=== PATIENT | male | born 1970 | race Caucasian/White ===

== ENCOUNTER 2020-06-24 09:18 | Observation (INO) | payer OTHER, SELFPAY ==
[2020-06-24] VITALS (17 sets, daily range): BP systolic 116–162; BP diastolic 69–97; PULSE 56–87; RESP 14–23; TEMP 36.4–37.4; O2SAT 93–100; BMI 29.6
--- NOTE | 2020-06-24 09:33 | US_ITS ---
WS: [id number] ULTRASOUND ABDOMEN LIMITED CLINICAL INFORMATION: last ate last night COMPARISON: May 26, 2020 FINDINGS: Liver Size: Normal. Craniocaudal length: 15.7 cm. Echogenicity: Normal. Surface nodularity: None. Mass (size and location): None. Bile ducts Intrahepatic ducts: Normal. Common bile duct diameter: 0.3 cm. Gallbladder Cholelithiasis Gallstones: Present Gallbladder sludge: None. Gallbladder wall thickenin-8 mm Pericholecystic fluid: Present Sonographic Kerr sign: Absent. Pancreas Normal as visualized. Right kidney: Normal. Hydronephrosis: None. Size: 11.7 cm x 4.4 cm x 5.3 cm. Abdominal aorta and IVC Visualized portions are normal. Ascites: None. Notified JEZ Lugo at 06/24/2020 10:47 AM. US/US gall bladder [id number] IMPRESSION: 1. Normal liver. 2. Cholelithiasis with gallbladder wall thickening and pericholecystic edema. Large shadowing gallstones. Findings suspicious for ACUTE CHOLECYSTITIS. Gallbl adder wall thickening is progressed since May 26, 2020 3. No hydronephrosis in right kidney.
--- NOTE | 2020-06-24 09:34 | ED_ITS ---
HPI - Abdominal Pain General: Chief Complaint: Abdominal Pain Stated Complaint: UPPER ABD PAIN Time Seen by Provider: 06/24/20 09:24 History of Present Illness: HPI narrative: Patient complain about right-sided upper abdominal pain this is his fifth gallbladder attack as he says. This was last about 33 hours said he ate some fried fish talk was on the road and fix and fried food at home and this set this thing off. He has been vomiting since last night. Not able to keep fluids down well. Had recent gallbladder ultrasound which did show cholelithiasis tried to control with diet did not want surgery but now think he might like to have surgery. MD elicited complaint: abdominal pain Onset (ago): hour(s) Pain Consistency: constant Location: RUQ Severity: moderate Pain scale (0-10): 5 Quality: aching Migration to: no migration Exacerbating factors: eating Relieving factors: rest Associated Symptoms: Reports nausea and vomiting; Denies chills and fever(s) Review of Systems Const: Denies: fever(s), chills or body aches Eyes: Denies: change in vision or blurry vision ENMT: Denies: throat pain or nasal congestion Card: Denies: chest pain or dyspnea on exertion Resp: Denies: dyspnea, productive cough or non-productive cough GI: Reports: abdominal pain, nausea and vomiting : Denies: difficulty urinating Musc: Denies: extremity pain Skin/Breast: Denies: rash Neuro: Denies: headache(s) Psych: Denies: anxiety or depression Jc/Lymph: Denies: easy bruising Physical Exam Const: COMMON NORMALS: no acute distress, average body habitus and patient oriented x3 HENMT: COMMON NORMALS: normocephalic HEAD & SCALP: normal to inspection and normocephalic FACE & SINUS: normal facial exam Eye: COMMON NORMALS: conjunctivae normal GENERAL EYE: appearance normal, both eyes and all related structures CONJUNCTIVA: Yes conjunctivae normal Neck/C-Spine: COMMON NORMALS: no JVD Chest: COMMONS NORMALS: normal inspection of the chest Resp: COMMON NORMALS: normal respiratory effort and clear to auscultation bilaterally AUSCULTATION: clear to auscultation bilaterally Cardio: COMMON NORMALS: no JVD, regular rate and regular rhythm RATE: regular rate RHYTHM: regular rhythm GI: COMMON NORMALS: Normal to inspection, nondistended, normoactive bowel sounds present PALPATION: Yes Tenderness to palpation present (GI) Details: RUQ Extremity: COMMON NORMALS: normal to inspection and full ROM Neuro: COMMON NORMALS: patient oriented x3 Course Vital Signs: Vital signs: Vital Signs Temperature 99.4 F 06/24/20 09:26 Pulse Rate 66 06/24/20 09:26 Respiratory Rate 18 06/24/20 09:26 Blood Pressure 155/97 06/24/20 09:26 Pulse Oximetry 96 06/24/20 09:26 MDM - Abdominal Pain MDM Narrative: Medical decision making narrative: Dr. Dr. Gaspar after getting radiology report of an inflamed gallbladder with edema Dr. Gaspar will see the patient here in the ER. Lab Data: Labs: Lab Results 06/24/20 06/24/20 Range/Units 09:49 09:49 WBC 14.9 H (4.0-10.0) 10^3/ uL RBC 5.10 (4.1-5.3) 10^6/u L Hgb 16.1 (11.7-16.6) g/dL Hct 45.4 (42.0-52.0) % MCV 89.0 (80-94) fL MCH 31.6 (28.0-34.0) pg MCHC 35.5 (30.0-36.0) g/dL RDW 12.8 (12.1-15.1) % Plt Count 168 (130-400) 10^3/c mm MPV 11.4 H (7.4-10.4) fL Neut % (Auto) 82.5 % Lymph % (Auto) 8.8 % [place] % (Auto) 7.7 % Eos % (Auto) 0.5 % Baso % (Auto) 0.2 % Neut # (Auto) 12.30 H (1.8-7.7) 10^3/u L Lymph # (Auto) 1.3 (0.8-4.8) 10^3/u L [place] # (Auto) 1.2 H (0.2-0.9) 10^3/u L Eos # (Auto) 0.1 (0.0-0.8) 10^3/u L Baso # (Auto) 0.0 (0.0-0.1) 10^3/u L Nucleated RBC % (a uto) 0 % Nucleated RBCs # 0.0 /100WBC Sodium 136 (136-145) mmol/L Potassium 3.7 (3.5-5.1) mmol/L Chloride 100 (98-107) mmol/L Carbon Dioxide 23 (22-29) mmol/L Anion Gap 16.7 (5-19) BUN 9 (6-20) mg/dL Creatinine 1.0 (0.7-1.2) mg/dL GFR Calculation 79.8 L (90-130) mL/min Glucose 126 H (65-115) mg/dL Calculated Osmolal ity 280 L (285-295) mOsm/k g Calcium 9.6 (8.5-10.5) mg/dL Total Bilirubin 0.9 (0.15-1.2) mg/dL AST 19 (0-40) U/L ALT 14 (0-41) U/L Alkaline Phosphata se 71 (40-130) IU/L Total Protein 7.7 (6.6-8.7) g/dL Albumin 4.6 (3.5-5.2) g/dL Globulin 3.1 (1.3-4.6) g/dL Lipase 30 (13-60) U/L Discharge Plan Discharge Patient Disposition: Home Clinical Impression: Cholelithiases Qualifiers: Cholelithiasis location: gallbladder Cholecystitis presence: without cholecystitis Biliary obstruction: without biliary obstruction Qualified Code(s): K80.20 - Calculus of gallbladder without cholecystitis without obstruction Condition: Stable Prescriptions: New ciprofloxacin HCl 500 mg tablet 500 mg PO BID Qty: 14 RF: 0 hydrocodone-acetaminophen 5-325 mg tablet 1 tab PO Q6H PRN (Reason: pain) Qty: 10 RF: 0 No Action Tylenol Extra Strength 500 mg Tablet 1,000 mg PO PRN RF: 0 Discharge Orders: Discharge Order (Routine); Ordered 06/24/20 Ordered By: Joo Hernández Referrals: Lindsey Carpenter MD [Primary Care Provider] - Discharge Diet: As Directed Discharge Activity: Resume usual activity Patient Instructions: Biliary Colic (ED) Activity Restrictions/Additional Instructions: Follow-up with medical provider as directed. Take medications as prescribed. Return to the ER or your medical provider if condition worsens. Please read and understand discharge instructions. If any questions ask please. Follow-up Dr. Castaneda see about getting gallbladder function test done to check ejection fraction. Very bland diet stay away from greasy fried type foods that irritate the gallbladder Coding Level of Care Code ED Cloak Room Attendant for Chg Fwd Exam Comprehensive
[2020-06-24] MEDS: ketorolac 30 mg/mL INJ IVP (09:48)
[2020-06-24] MEDS: ondansetron 2 mg/ML SDV 2 mL 4 MG IVP (09:48)
[2020-06-24] MEDS: sodium chloride 0.9% 1,000 ML 999 ML IV (09:49)
[2020-06-24 09:57] LABS: Basophils % 0.2 %; Eosinophils # 0.1 10^3/uL (0.0-0.8); Eosinophils % 0.5 %; Hematocrit 45.4 % (42.0-52.0); Hemoglobin 16.1 g/dL (11.7-16.6); Lymphocytes # 1.3 10^3/uL (0.8-4.8); Lymphocytes % 8.8 %; Mean Corpuscular HGB Conc 35.5 g/dL (30.0-36.0); Mean Corpuscular Hemoglobin 31.6 pg (28.0-34.0); Mean Platelet Volume 11.4 fL (7.4-10.4); Monocytes # 1.2 10^3/uL (0.2-0.9); Monocytes % 7.7 %; Neutrophils % 82.5 %; Nucleated Red Blood Cells % 0 %; Platelet Count 168 10^3/cmm (130-400); Red Cell Distribution Width 12.8 % (12.1-15.1); White Blood Count 14.9 10^3/uL (4.0-10.0)
[2020-06-24 10:24] LABS: Alanine Aminotransferase 14 U/L (0-41); Albumin Level 4.6 g/dL (3.5-5.2); Alkaline Phosphatase 71 IU/L (40-130); Anion Gap 16.7 (5-19); Aspartate Amino Transferase 19 U/L (0-40); Blood Urea Nitrogen 9 mg/dL (6-20); Calcium 9.6 mg/dL (8.5-10.5); Carbon Dioxide 23 mmol/L (22-29); Chloride 100 mmol/L (98-107); Globulin 3.1 g/dL (1.3-4.6); Glomerular Filtration Rate 79.8 mL/min (90-130); Glucose 126 mg/dL (65-115); Lipase 30 U/L (13-60); Osmolality Calculated 280 mOsm/kg (285-295); Potassium 3.7 mmol/L (3.5-5.1); Sodium 136 mmol/L (136-145); Total Bilirubin 0.9 mg/dL (0.15-1.2); Total Protein 7.7 g/dL (6.6-8.7)
--- NOTE | 2020-06-24 11:04 | PM.HP ---
Providers/Chief Complaint Admitting Physician: General Surgery Barrett Gaspar MD Primary Care Provider: Lindsey Carpenter MD Chief Complaint: UPPER ABD PAIN History of Present Illness Scott Sweeney is a 49 year old male who began having symptoms suggestive of biliary colic 3 to 4 months ago. He had an ultrasound a month ago which confirmed cholelithiasis but no evidence of acute cholecystitis at that time. Up to that point in time he had had 4 significant attacks where he describes right upper quadrant pain after eating greasy food which was associated with nausea and vomiting. He never has had any evidence of hematemesis. He would feel somewhat gassy and belchy during the episodes. The episodes would usually last only for hours at a time and then go away. He decided to initially try to treat this with diet modification. The patient ended up having a another episode that started about 36 hours ago and has never gotten better. He describes pain in the right upper quadrant which went around to the right side of his back on this occasion. He had multiple episodes of vomiting and then some retching. He denies any fevers or chills. He has not had a bowel movement for 2 days but says they have been normal up until that time. He does mention some intermittent bentley-colored stool over the past several months but no evidence of jaundice. The patient came to the emergency room today and a repeat ultrasound now showed evidence of acute calculus cholecystitis as evidenced by a thickened gallbladder wall and pericholecystic edema. Liver function studies were all within normal limits. The patient says he actually feels considerably better now but he knows the pain medication is making a big difference. Review of Systems General: Reports: 10 or more systems reviewed and unremarkable except in HPI and below Const: Denies: fever(s) Card: Reports: chest pain (Perhaps some lower right-sided chest pain in association with his right upper quadrant pain during episodes of biliary colic) GI: Reports: abdominal pain, nausea and vomiting; Denies: change in stool character (Other than some windows and doors installer colored stool at times, but not classically acholic stool) or hematochezia Medications/Allergies Home Medications Medication Instructions Recorded Confirmed Last Taken Type No Known Home Medications 06/24/20 06/24/20 Unknown History Allergies Allergy/AdvReac Type Severity Reaction Status Date / Time [place] nut Allergy ALGY-Rash Verified 06/24/20 09:29 tuna oil Allergy ALGY-Rash Verified 06/24/20 09:29 PFSH Acute PFSH: Medical History (Updated 06/24/20 @ 11:38 by Barrett Gaspar MD) Cholelithiasis Dyslipidemia Surgical History (Updated 06/24/20 @ 11:36 by Barrett Gaspar MD) History of hernia surgery Bilateral inguinal hernia repair History of placement of ear tubes X 3 sets History of vasectomy Social History (Updated 06/24/20 @ 11:37 by Barrett Gaspar MD) Smoking and tobacco status: former smoker Quit status (tobacco): has quit using tobacco Year quit tobacco: 2016 Former quit date comment: [id number] history prior to quitting Alcohol intake: current Alcohol type: beer and wine Alcohol use comment: Intermittently Vitals/I&O/Wt Last Vital Signs Temp 99.4 F 06/24/20 09:26 Pulse 66 06/24/20 09:26 Resp 18 06/24/20 09:26 BP 155/97 06/24/20 09:26 Pulse Ox 96 06/24/20 09:26 Weight last 48 hrs Weight 195 lb Physical Exam Narrative: EXAM NARRATIVE: Patient was encountered in his emergency room cubicle. He does not appear to be in any acute distress. The pupils are equal. No carotid bruits are heard. The lungs are clear anteriorly. The heart is regular. The abdomen is mildly obese but is soft. The patient has some mild to moderate tenderness in the right upper quadrant but Kerr sign is negative. No obvious masses are palpated. The extremities reveal no edema. Neurologically the patient appears to be grossly intact. Data : 06/24/20 09:49 06/24/20 09:49 Other Labs: Laboratory Tests 06/24/20 09:49 Total Bilirubin 0.9 AST 19 ALT 14 Lipase 30 US: Radiologist's impression: Gallbladder ultrasound 06/24/2020 iMPRESSION: 1. Normal liver. 2. Cholelithiasis with gallbladder wall thickening and pericholecystic edema. Large shadowing gallstones. Findings suspicious for ACUTE CHOLECYSTITIS. Gallbladder wall thickening is progressed since May 26, 2020 3. No hydronephrosis in right kidney. A&P Assessment and plan (1) Acute cholecystitis due to biliary calculus: I discussed biliary colic and acute cholecystitis with the patient in some detail. I made him aware that the recommendation with acute cholecystitis is to proceed with surgery. We discussed laparoscopy and open surgery. We also discussed risks of bleeding, infection, internal organ injury, etc. The patient seems to understand. He would like to proceed with a cholecystectomy today. The patient last had some sips of water at 4 AM this morning. I will make arrangements to proceed to the operating room today for a cholecystectomy. Status: Acute Attestations Medical Necessity Statement*: Based on my medical assessment, presenting symptoms and consideration of the scope of surgical therapy, I expect this patient will require treatment in the hospital for a period of time spanning less than 2 midnights, and is therefore being placed in observation status. Coding Level of Care Code Acute Sales Engineer for Chava Nguyen Diagnoses Acute cholecystitis due to biliary calculus K80.00
--- NOTE | 2020-06-24 11:07 | PC.NURSE ---
Dr. Gaspar at bedside speaking with the patient. Patient explained that last food intake was at 10pm, last fluid intake 0400 this morning.
[2020-06-24] MEDS: lactated ringers 1,000 ML 150 ML IV (11:44)
--- NOTE | 2020-06-24 12:08 | ANES.PREANE2 ---
Pre-Anesthetic Assessment Pre-Anesthetic Assessment: Height/Weight: Height 1.73 m Weight 88.451 kg Temp Pulse Resp BP Pulse Ox 97.7 F 64 16 139/83 96 06/24/20 12:06 06/24/20 12:06 06/24/20 12:06 06/24/20 12:06 06/24/20 12:06 Proposed Procedure: Operation Date: 06/24/20 12:00 Proposed Procedures p Laparoscopic Cholecystectomy(Not Applicable) - Barrett Gaspar MD Last intake: Intake Last Liquid Date 06/24/20 Last Liquid Time 04:00 Last Solid Date 06/23/20 Last Solid Time 22:30 Social: Social History: Tobacco (quit 2016) and No alcohol Exam: Pre-Anes Outpt Exam: alert, oriented x 3, clear to auscultation bilaterally and regular rate & rhythm Airway: Submandibular: WNL Cervical ROM: WNL MP: 1 Dentition: Other (teeth ok) History/ROS: No significant history except as noted Pulmonary: Pulmonary: None reported CV/HEM: CV/HEM: None reported : : None reported Hepatic: Hepatic: None reported GI: GI: None reported Metabolic: Metabolic: Hyperlipidemia Musc/skel: Musc/skel: None reported Neuropsych: Neuropsych: None reported Anesthetic Plan: ASA status: 2 Anesthesia: Anesthesia Evaluation and General Risk of > 500 ml blood loss (7ml/kg in children): No Meds/Allergies Current Medications: Current Medications Generic Name Dose Route Start Last Admin Trade Name Freq PRN Reason Stop Dose Admin Lactated Ringer's 1,000 mls @ 150 m ls/hr 06/24/20 11:30 06/24/20 11:44 Lactated Ringers IV 150 mls/hr .[id number] JAN Administration PFSH Anesthesia PFSH: Medical History Cholelithiasis Dyslipidemia Surgical History History of hernia surgery Bilateral inguinal hernia repair History of placement of ear tubes X 3 sets History of vasectomy Social History Smoking and tobacco status: former smoker Quit status (tobacco): has quit using tobacco Year quit tobacco: 2016 Former quit date comment: [id number] history prior to quitting Alcohol intake: current Alcohol type: beer and wine Alcohol use comment: Intermittently Data Anesthesia CBC & Chem 7: 06/24/20 09:49 06/24/20 09:49 Other Labs: Laboratory Results - last 48 hr 06/24/20 06/24/20 09:49 09:49 WBC 14.9 H RBC 5.10 Hgb 16.1 Hct 45.4 MCV 89.0 MCH 31.6 MCHC 35.5 RDW 12.8 Plt Count 168 MPV 11.4 H Neut % (Auto) 82.5 Lymph % (Auto) 8.8 [place] % (Auto) 7.7 Eos % (Auto) 0.5 Baso % (Auto) 0.2 Neut # (Auto) 12.30 H Lymph # (Auto) 1.3 [place] # (Auto) 1.2 H Eos # (Auto) 0.1 Baso # (Auto) 0.0 Nucleated RBC % (auto) 0 Nucleated RBCs # 0.0 Sodium 136 Potassium 3.7 Chloride 100 Carbon Dioxide 23 Anion Gap 16.7 BUN 9 Creatinine 1.0 GFR Calculation 79.8 L Glucose 126 H Calculated Osmolality 280 L Calcium 9.6 Total Bilirubin 0.9 AST 19 ALT 14 Alkaline Phosphatase 71 Total Protein 7.7 Albumin 4.6 Globulin 3.1 Lipase 30 Cardiac Studies: No Data to Display
[2020-06-24] MEDS: sodium chloride 0.9% 1,000 ML 30 ML IV (12:25)
--- NOTE | 2020-06-24 13:41 | PM.OP ---
Operative Report Date of procedure: June 24, 2020 Pre-op Diagnosis: Acute calculus cholecystitis. Post-op diagnosis: same Procedure Done: Laparoscopic cholecystectomy. Specimens removed/disposition: Gallbladder. Surgeon: Barrett Gaspar Anesthesia: General Estimated blood loss (mL): 25 Complications: None. Condition: stable Disposition: PACU Procedure: The patient was brought to the Operating Room and was placed in a supine position on the Operating Room table. General endotracheal anesthesia was induced. The abdomen was prepped and draped in a sterile fashion. A small vertical incision was carried out in the inferior aspect of the umbilicus. Blunt dissection was carried out down to the fascia, which was grasped with a Ron clamp. A stay suture of 0 Vicryl was placed on either side of the midline and the midline fascia was incised. The underlying peritoneum was opened bluntly and the Chavez port was placed directly into the peritoneal cavity and was held in place with the inflatable balloon. The peritoneal cavity was insufflated with carbon dioxide. The laparoscope was used to inspect the abdominal cavity. The gallbladder was found to be edematous and distended. No other gross abnormalities were initially noted. A 5 millimeter port was placed in the epigastrium under direct vision. Two 5-millimeter ports were placed on the right side of the abdomen under direct vision. Approximately 50 mL of dark-colored bile were then suctioned from the gallbladder using a laparoscopic needle so that the gallbladder was less distended and more pliable. The gallbladder was grasped and was elevated. Patient had adhesions along the fundus and especially in the infundibular region of the gallbladder which were subacute and chronic in nature. Blunt dissection and hydrodissection were carried out in the infundibular region of the gallbladder and the cystic duct and cystic artery were eventually identified. The gallbladder was partially removed from the liver bed using cautery and the spatula to confirm the anatomy before the structures were clipped and divided. The gallbladder was then removed from the liver bed using cautery and the spatula. The plane between the gallbladder showed evidence of acute and chronic inflammation. After the gallbladder had been removed from the liver bed, the laparoscope was moved to the epigastric port and the gallbladder was removed from the peritoneal cavity through the umbilical port site after being placed in a laparoscopic bag. Both the skin incision and the fascial incision at the umbilical site had to be elongated to allow passage of the edematous gallbladder with all of the gallstones in place. The stay sutures of Vicryl were tied to each other at the umbilicus. An additional [id number] suture of 0 Vicryl was placed, closing the defect so that it was airtight. The perihepatic spaces were extensively irrigated with saline and the liver bed was reinspected. No ongoing problems were seen. The remaining ports were removed from the abdominal wall and the pneumoperitoneum was evacuated. All skin incisions were closed using inverted interrupted sutures of 4-0 Vicryl. Benzoin and Steri-Strips were placed over the incisions and Band-Aids followed. The patient was taken to the Recovery Area in stable condition postoperatively.
--- NOTE | 2020-06-24 13:51 | SUR.PHASEI ---
5670 PATIENT TO PACU FROM OR. NO DISTRESS. ORAL AIRWAY IN PLACE, SPO2 100% ON SIMPLE MASK AT 8L. 4 INCISIONS TO ABDOMEN, COVERED WITH BANDAIDS, CDI
--- NOTE | 2020-06-24 13:53 | SUR.PHASEI ---
1353 ORAL AIRWAY REMOVED, SPO2 100% ON SIMPLE MASK AT 8L.
--- NOTE | 2020-06-24 14:31 | SUR.PHASEI ---
1416 PATIENT TO MED SURG. DENIES NAUSEA, TOLERATING ICE CHIPS. MINIMAL PAIN. 12/06. 4 INCISIONS, CDI. PATIENT AMBULATORY FROM [place] TO BED WITH STEADY GAIT.
--- NOTE | 2020-06-24 14:48 | PC.NURSE ---
4 incisions noted to abdomen, covered with dermabond and bandaid
[2020-06-24] MEDS: heparin 5,000 unit/mL INJ 1 mL 5000 UNIT SUBCUT (15:00)
[2020-06-24] MEDS: famotidine 20 mg/2 mL INJ IVP (15:00)
[2020-06-24] MEDS: metroNIDAZOLE IV 500 MG/100 ML PREMIX 100 MG IV (15:01)
[2020-06-24] MEDS: D5-NS 0.45% + KCL 20 mEq 20 MEQ/1,000 ML BAG 100 MEQ IV (15:01)
--- NOTE | 2020-06-24 15:53 | PM.DCS ---
Discharge Providers Date of Admission: 06/24/20 13:53 Date of Discharge: June 24, 2020 Attending Provider at Admission: Barrett Gaspar MD Attending Provider at Discharge: Barrett Gaspar MD Primary Care Provider: Lindsey Carpenter MD Diagnoses at Discharge Discharge Diagnosis (1) Acute cholecystitis due to biliary calculus: Status: Acute Problem details: Status post laparoscopic cholecystectomy. Reason for Visit Reason for Visit: UPPER ABD PAIN Hospital Course Discharge Summary: This is a 49-year-old white male who started having symptoms consistent with biliary colic several months ago. He was found to have cholelithiasis on ultrasound approximately 1 month ago. He started having an episode of right upper quadrant pain that wrapped around to the right side of his back about 36 hours prior to presentation. This was associated with nausea, vomiting, and a gassy and bloated sensation. A repeat ultrasound revealed cholelithiasis but thickening of the gallbladder wall and pericholecystic edema consistent with acute cholecystitis. The patient was counseled regarding a cholecystectomy and decided to proceed the same day. The patient's surgery was without immediate complication. Within an hour after surgery the patient said he was already feeling better and was anxious to go home. He was instructed with respect to wound care, activity limitations, diet, etc. Arrangements will be made for him to follow-up in my office as an outpatient. Physical Exam Narrative: EXAM NARRATIVE: Vital signs are stable. All of the incisions and overlying bandages look good. Discharge Data Data Completed and Pending: Completed Studies During Hospitalization Category Date Time Status US gall bladder 7 6705 Urgent Ultrasound 06/24/20 09:33 Completed Pending at discharge Category Date Time Status Pathology: Surgic al [PTH] Routine Pth 06/24/20 13:49 Received Labs from last 24 hours 06/24/20 06/24/20 09:49 09:49 WBC 14.9 H RBC 5.10 Hgb 16.1 Hct 45.4 MCV 89.0 MCH 31.6 MCHC 35.5 RDW 12.8 Plt Count 168 MPV 11.4 H Neut % (Auto) 82.5 Lymph % (Auto) 8.8 [place] % (Auto) 7.7 Eos % (Auto) 0.5 Baso % (Auto) 0.2 Neut # (Auto) 12.30 H Lymph # (Auto) 1.3 [place] # (Auto) 1.2 H Eos # (Auto) 0.1 Baso # (Auto) 0.0 Nucleated RBC % (a uto) 0 Nucleated RBCs # 0.0 Sodium 136 Potassium 3.7 Chloride 100 Carbon Dioxide 23 Anion Gap 16.7 BUN 9 Creatinine 1.0 GFR Calculation 79.8 L Glucose 126 H Calculated Osmolal ity 280 L Calcium 9.6 Total Bilirubin 0.9 AST 19 ALT 14 Alkaline Phosphata se 71 Total Protein 7.7 Albumin 4.6 Globulin 3.1 Lipase 30 Vitals: Last Vital Signs Temp 98.1 F 06/24/20 15:00 Pulse 74 06/24/20 15:20 Resp 16 06/24/20 15:10 BP 129/85 06/24/20 15:00 Pulse Ox 97 06/24/20 15:10 Discharge Plan Discharge Patient Disposition: Home Condition: Stable Prescriptions: New hydrocodone-acetaminophen 5-325 mg tablet 1 - 2 tab PO Q5H PRN (Reason: pain) Qty: 30 RF: 0 Discontinued acetaminophen [Tylenol Extra Strength] 500 mg Tablet 1,000 mg PO PRN RF: 0 Discharge Orders: Discharge Order (Routine); Ordered 06/24/20 Ordered By: Barrett Gaspar Referrals: Lindsey Carpenter MD [Primary Care Provider] - Barrett Gaspar MD [Physician] - 2 weeks Discharge Diet: Advance as tolerated Discharge Activity: Limit activity as instructed Activity Restrictions/Additional Instructions: 1. Discharge to home today. 2. Appointment to see Dr. Gaspar in 10-14 days. 3. Bandages / bandaids off tomorrow, leave Steri-Strip(s) on, may shower. 4. [place] 5/325 1-2 tablets by mouth every 5 hours as needed for pain. #30, no refills No lifting over 20 pounds, no repetitive bending or twisting, no strenuous pushing / pulling or other heavy activity. Ambulate regularly. May go up and down steps if needed. Discharge Attestations Time Spent in Discharge Care*: less than 30 min Quality Metrics Clinical Quality Measures During this hospital stay, did patient experience: None Coding Level of Care Code Acute Manager Sales And Marketing for Chava Nguyen Diagnoses Acute cholecystitis due to biliary calculus K80.00
--- NOTE | 2020-06-24 17:21 | PC.NURSE ---
discharge instructions provided, verbalized understanding denies further questions or concerns.
== END 2020-06-24 18:09 | disposition home or self-care (01) ==
LOC: ER 10:40 → OPS 11:26 → MEDSURG 13:53
PROVIDERS: Nurse Practitioner Family; Admitting Provider Surgery; PCP Family Medicine; Visit Provider Surgery
PROC: 0FT44ZZ Resection of Gallbladder, Percutaneous Endoscopic Approach (ICD-10-PCS; CPT 47562; principal; 2020-06-24 12:00)
DX: K80.00 Calculus of gallbladder with acute cholecystitis without obstruction (principal); K82.A1 Gangrene of gallbladder in cholecystitis; Z87.891 Personal history of nicotine dependence; E78.5 Hyperlipidemia, unspecified
CPT/HCPCS: 47562; 12345; 36415; 76705; 80053; 83690; 85025; 88304; 96361; 96372; 96374; 96375; 99282; 99285; G0378; J0131; J0690; J1100; J1644; J1885; J2405; J2704; J2710; J3010; J3490; J7030; S0030